=== PATIENT | female | born 1990 | race Caucasian/White ===

== ENCOUNTER → 2018-05-06 | Outpatient (CLI) | payer OTHER ==
[~2018-05-06] MED LIST: ALBU90OI INH; ANTOXYBENA BOTHEARS; AZIT250 PO; CEPH500 PO; NAPR500 PO; PRED10 PO; SULTRIDS PO; TRAM50 PO
[2018-05-06 14:33] LABS: Candida species (DNA Probe) Negative (NEGATIVE); G. vaginalis (DNA Probe) Negative (NEGATIVE); T. vaginalis (DNA Probe) Negative (NEGATIVE)
== END | disposition home or self-care (01) ==
LOC: LAB SHORT 12:20 → LAB 12:20
PROVIDERS: Advanced Practice Midwife
DX: Z01.419 Encounter for gynecological examination (general) (routine) without abnormal findings (principal); L98.9 Disorder of the skin and subcutaneous tissue, unspecified; N89.8 Other specified noninflammatory disorders of vagina
CPT/HCPCS: 87070; 87205; 87480; 87510; 87529; 87660; G0123

== ENCOUNTER → 2021-07-18 | Outpatient (CLI) | payer OTHER ==
[~2021-07-18] MED LIST changes: +ACET120S PO; +EPIPEN 2-P0.3 MG/0.3 IM; +IBUP600 PO; +VALA500 PO
== END | disposition home or self-care (01) ==
LOC: LAB 08:51 → LAB SHORT 08:51
DX: N39.0 Urinary tract infection, site not specified (principal)
CPT/HCPCS: 87086

== ENCOUNTER → 2021-09-22 | Outpatient (CLI) | payer OTHER ==
[2021-09-23 10:09] LABS: Candida species (DNA Probe) Negative (NEGATIVE); G. vaginalis (DNA Probe) Negative (NEGATIVE); T. vaginalis (DNA Probe) Negative (NEGATIVE)
[2021-09-23 15:10] LABS: HPV 16 Negative (Negative); HPV 18 Negative (Negative); HPV OTHER HR TYPES Negative (Negative)
== END | disposition home or self-care (01) ==
LOC: LAB SHORT 15:14 → LAB 15:14
PROVIDERS: Advanced Practice Midwife
DX: Z01.419 Encounter for gynecological examination (general) (routine) without abnormal findings (principal); N76.0 Acute vaginitis
CPT/HCPCS: 87480; 87510; 87624; 87660; G0123

== ENCOUNTER 2021-11-24 09:19 | Day surgery (SDC) | payer OTHER ==
[~2021-11-24] VITALS: Ht 152.4 cm; Wt 70.4 kg
[~2021-11-24 09:19] MED LIST changes: +EFFEXOR XR37.5 MG PO; +ERGO50000 PO
[2021-11-24] MEDS ORDERED: ACET325 PO (09:37)
[2021-11-24] MEDS ORDERED: VITAMIN D5000 UNIT PO (09:38)
--- NOTE | 2021-11-24 09:45 | NUR ---
PT ADMITTED TO [facility]. AGREES WITH PLANNED SURGERY. LUNG SOUNDS CLEAR.
[2021-11-24] MEDS ORDERED: OXYC5 PO (16:00)
[2021-11-24] MEDS ORDERED: ALORA1 EA10 TOP (16:07)
[2021-11-24] MEDS ORDERED: DOCU100 PO (16:08)
[2021-11-24] MEDS ORDERED: ACET500 PO (16:08)
--- NOTE | 2021-11-24 16:27 | NUR ---
DISCHARGE VSS ON RA, PT IS VOIDING, TOLERATING PO WELL, PAIN MANAGED PER EMAR, NO VAGINAL BLEEDING AT THIS TIME. RX ALREADY PICKED UP BY SPOUSE. DISCUSSED DISCHARGE INSTRUCTIONS, ESCORTED OUT VIA W/C.
== END 2021-11-24 16:24 | disposition home or self-care (01) ==
LOC: ORSCMMR 09:19 → ORD 10:30 → ORSCMMR 10:30 → SURS 13:05 → ORSCMMR 16:24
PROVIDERS: Obstetrics & Gynecology
PROC: 0UT0FZZ Resection of Right Ovary, Via Natural or Artificial Opening With Percutaneous Endoscopic Assistance (ICD-10-PCS; principal; 2021-11-24 10:30)
PROC: 0UT9FZZ Resection of Uterus, Via Natural or Artificial Opening With Percutaneous Endoscopic Assistance (ICD-10-PCS; principal; 2021-11-24 10:30)
PROC: 0UT5FZZ Resection of Right Fallopian Tube, Via Natural or Artificial Opening With Percutaneous Endoscopic Assistance (ICD-10-PCS; principal; 2021-11-24 10:30)
DX: N83.291 Other ovarian cyst, right side (principal); N73.1 Chronic parametritis and pelvic cellulitis; R10.2 Pelvic and perineal pain; N83.8 Other noninflammatory disorders of ovary, fallopian tube and broad ligament; N80.0 Endometriosis of uterus; J45.909 Unspecified asthma, uncomplicated; F43.10 Post-traumatic stress disorder, unspecified; Z79.899 Other long term (current) drug therapy
CPT/HCPCS: 88307; A9270; J0171; J1100; J1580; J1885; J2250; J2405; J2704; J3010; J7120

== ENCOUNTER 2022-05-12 02:48 | Emergency (ER) | payer BC ==
[~2022-05-12] VITALS: Ht 152.4 cm; Wt 68.0 kg
[~2022-05-12 02:48] MED LIST changes: +ACET325 PO; +ACET500 PO; +ALORA1 EA10 TOP; +DOCU100 PO; +OXYC5 PO; +VITAMIN D5000 UNIT PO
[2022-05-12 03:13] LABS: Source, Urine Clean Catch
[2022-05-12 03:21] LABS: Bilirubin, Urine Neg (Neg); Blood, Urine 4+ (Neg); Glucose Qualitative, Urine Neg (Neg); Ketones, Urine Neg (Neg); Leukocyte Esterase, Urine Neg (Neg); Nitrite, Urine Neg (Neg); Protein, Urine Neg (Neg); Specific Gravity, Urine 1.015 (1.003-1.022); Urobilinogen, Urine NORM (Normal)
[2022-05-12 03:30] LABS: Appearance, Urine Clear (Clear); Color, Urine Yellow (P-Yellow)
[2022-05-12 03:31] LABS: White Blood Cells, Urine Not Seen /hpf (0-5)
[2022-05-12 03:32] LABS: Bacteria Rare /hpf; Squamous Epithelial Cells Few /hpf (Few)
[2022-05-12 03:46] LABS: BASOPHILS ABSOLUTE AUTO 0.02 K/mm3 (0.00-0.23); BASOPHILS PERCENT AUTO 0 % (0-2); EOSINOPHILS ABSOLUTE AUTO 0.09 K/mm3 (0.00-0.68); EOSINOPHILS PERCENT AUTO 1 % (0-6); Hematocrit 38.9 % (33.0-51.0); Hemoglobin 12.9 g/dL (11.5-16.0); IMMATURE GRAN ABSOLUTE AUTO 0.02 K/mm3 (0.00-0.10); IMMATURE GRAN PERCENT AUTO 0 % (0-1); LYMPHOCYTES ABSOLUTE AUTO 1.01 K/mm3 (0.84-5.20); LYMPHOCYTES PERCENT AUTO 14 % (21-46); MONOCYTES PERCENT AUTO 13 % (4-13); Mean Corpuscular HGB 29.3 pg (26.0-34.0); Mean Corpuscular HGB Conc 33.2 g/dL (31.5-36.5); Mean Corpuscular Volume 88 fL (80-100); Mean Platelet Volume 10.1 fL (9.1-12.4); NEUTROPHILS ABSOLUTE AUTO 5.13 K/mm3 (1.96-9.15); NEUTROPHILS PERCENT AUTO 71 % (41-73); Platelet Count 211 K/mm3 (150-400); RDW Coefficient Variation 13.3 % (11.7-14.2); RDW Standard Deviation 43.3 fL (35.1-46.3); Red Blood Cell Count 4.41 M/mm3 (3.80-5.20); White Blood Cell Count 7.17 K/mm3 (4.00-11.30)
[2022-05-12 04:06] LABS: Albumin, Blood 3.6 g/dL (3.4-5.0); Albumin/Globulin Ratio 0.9 (0.8-1.8); Bilirubin, Total 0.7 mg/dL (0.1-1.0); Calcium, Blood 8.5 mg/dL (8.5-10.1); Creatinine, Blood 0.69 mg/dL (0.40-1.00); Potassium, Blood 3.6 mmol/L (3.5-5.5); Total Protein, Blood 7.6 g/dL (6.4-8.2)
== END 2022-05-12 04:39 | disposition home or self-care (01) ==
LOC: ER 02:48
PROVIDERS: Emergency Medicine
DX: R10.9 Unspecified abdominal pain (principal); R19.7 Diarrhea, unspecified; Z88.0 Allergy status to penicillin; Z88.1 Allergy status to other antibiotic agents; Z91.038 Other insect allergy status; Z79.899 Other long term (current) drug therapy
CPT/HCPCS: 36415; 80053; 81001; 83690; 85025; A9270; J1885; J2405; J7030

== ENCOUNTER 2024-05-31 17:55 | Emergency (ER) | payer BC ==
[~2024-05-31] VITALS: Ht 147.3 cm; Wt 61.2 kg
[2024-05-31 19:25] VITALS: BP 115/70
== END 2024-05-31 19:26 | disposition home or self-care (01) ==
LOC: ER 17:55
DX: S63.285A Dislocation of proximal interphalangeal joint of left ring finger, initial encounter (principal); S50.311A Abrasion of right elbow, initial encounter; S80.211A Abrasion, right knee, initial encounter; S90.414A Abrasion, right lesser toe(s), initial encounter; S60.415A Abrasion of left ring finger, initial encounter; W18.30XA Fall on same level, unspecified, initial encounter; Z88.0 Allergy status to penicillin; Z88.1 Allergy status to other antibiotic agents; Z91.030 Bee allergy status; Z79.899 Other long term (current) drug therapy; Z87.891 Personal history of nicotine dependence
CPT/HCPCS: 26605; 73140; 99283-25